=== PATIENT | male | born 1975 | race Caucasian/White ===

== ENCOUNTER 2016-07-16 03:11 | Emergency (ER) | payer BC ==
[2016-07-16] MEDS ORDERED: PENICILLIN V POTASSIUM 250 MG TAB PO ONE (03:23)
--- NOTE | 2016-07-16 03:23 | Emergency Department Record ---
History of Present Illness - General Chief complaint: Toothache Stated complaint: TOOTH PAIN Time Seen by Provider: 07/16/16 03:21 Source: Patient Mode of Arrival: Ambulatory Limitations: No limitations - History of Present Illness Initial comments: 41 yo male presents to ED with a CC of left sided lower dental pain after his filling broke off earlier last evening. Patient denies any for of trauma to the area, reports that Ibuprofen has not helped with his pain symptoms. Patient denies health problems at his baseline, admits to drinking alcohol tonight as well. MD complaint: Tooth pain Onset/Timin -: Hour(s) Location: Tooth # 1 - Dental caries Severity: Moderate Severity scale (1-10): 9 Quality: Sharp Consistency: Constant Improves with: None Worsens with: Eating Context- Dental: History of dental caries - Related Data Previous Rx's Medication Instructions Recorded Penicillin V Potassium 500 mg PO Q6H #27 tab 07/16/16 Allergies Allergy/AdvReac Type Severity Reaction Status Date / Time No Known Drug Allergies Allergy Verified 07/16/16 03:14 Travel Screening - Travel/Exposure Within Last 30 Days Have you traveled within the last 30 days?: No - Travel/Exposure Within Last Year Have you traveled outside the [place] in the last year?: No - Additonal Travel Details Have you been exposed to anyone with a communicable illness?: No - Travel Symptoms Symptom Screening: None Review of Systems Constitutional: Denies: Chills, Fever, Malaise, Night sweats Eyes: Denies: Eye discharge, Eye pain ENT: Reports: Dental pain. Denies: Congestion, Ear pain Respiratory: Denies: Cough, Dyspnea Cardiovascular: Denies: Chest pain, Dyspnea on exertion Endocrine: Denies: Fatigue, Heat or cold intolerance Gastrointestinal: Denies: Abdominal pain, Nausea, Vomiting Genitourinary: Denies: Incontinence, Retention Musculoskeletal: Denies: Arthralgia, Back pain, Gout, Joint swelling Skin: Denies: Bruising, Change in color Neurological: Denies: Abnormal gait, Confusion, Headache, Seizure Psychiatric: Denies: Anxiety Hematological/Lymphatic: Denies: Anemia, Blood Clots Past Medical History - SOCIAL HISTORY Smoking Status: Current some day smoker Alcohol Use: Heavy Drug Use: None - RESPIRATORY Hx Respiratory Disorders: No - CARDIOVASCULAR Hx Cardio Disorders: No - NEURO Hx Neuro Disorders: No - GI Hx GI Disorders: No - Hx Genitourinary Disorders: No - ENDOCRINE Hx Endocrine Disorders: No - MUSCULOSKELETAL Hx Musculoskeletal Disorders: No - PSYCH Hx Psych Problems: No - HEMATOLOGY/ONCOLOGY Hx Hematology/Oncology Disorders: No Family Medical History Any Significant Family History?: No Physical Exam - General General Appearance: Alert, Oriented x3, Cooperative, Moderate distress Limitations: No limitations - Head Head exam: Atraumatic, Normocephalic, Normal inspection Head exam detail: negative: Abrasion, Contusion, Sanchez's sign, General tenderness, Hematoma, Laceration - Eye Eye exam: Normal appearance. negative: Conjunctival injection, Periorbital swelling, Periorbital tenderness, Scleral icterus - ENT Ear exam: negative: Auricular hematoma, Auricular trauma Nasal Exam: negative: Active bleeding, Discharge, Dried blood, Foreign body Mouth exam: negative: Drooling, Laceration, Muffled voice, Tongue elevation Teeth exam: Dental caries, Dental tenderness # Image of Mouth/Teeth: 1 - Dental caries present without evidence for gingival abscess - Neck Neck exam: Normal inspection. negative: Meningismus, Tenderness - Respiratory Respiratory exam: Normal lung sounds bilaterally. negative: Rales, Respiratory distress, Rhonchi, Stridor - Cardiovascular Cardiovascular Exam: Regular rate, Normal rhythm, Normal heart sounds - GI/Abdominal GI/Abdominal exam: Soft. negative: Rebound, Rigid, Tenderness - Rectal Rectal exam: Deferred - exam: Deferred - Extremities Extremities exam: Normal inspection. negative: Calf tenderness, Pedal edema, Tenderness - Back Back exam: Denies: CVA tenderness (R), CVA tenderness (L) - Neurological Neurological exam: Alert, Normal gait, Oriented X3 - Psychiatric Psychiatric exam: Normal affect, Normal mood - Skin Skin exam: Normal color. negative: Abrasion Type of lesion: negative: abrasion Course Vital Signs 07/16/16 03:18 Temperature 97.8 F Pulse Rate [ 76 Pulse Ox Probe] Respiratory 18 Rate Blood Pressure 180/111 [Left Arm] Pulse Ox 99 - Reevaluation(s) Reevaluation #1: 07/16/16 03:26 Dental block performed, will initiate Pen VK for treatment of possible underlying dental infection with instructions for dental follow-up in 2-3 days. Patient appears stable for discharge at this time. Procedures - Nerve Block Consent Obtained: Verbal consent Time Out Performed: Yes Local Anesthetic Used: Marcaine 0.5% Amount of anesthesia used: 1.5 Side: Left Intraoral Nerve Block: Supraperiosteal Procedure Successful: Yes Complications: None Patient Tolerated Procedure: Good Disposition Disposition: Discharge Clinical Impression: Dental caries Disposition: Home, Self-Care Condition: (2) Stable Instructions: Dental Caries (ED) Additional Instructions: Return to ED if your symptoms worsen or if you have any concerns Penicillin as directed Follow-up with your dentist in 1-3 days as directed. Prescriptions: Penicillin V Potassium 500 mg PO Q6H #27 tab Forms: Patient Portal Access Time of Disposition: 03:22
== END 2016-07-16 03:36 | disposition home or self-care (01) ==
LOC: ER 03:11
DX: K02.9 Dental caries, unspecified (principal)
CPT/HCPCS: 64400; 99283